=== PATIENT | female | born 1970 | race Caucasian/White ===

== ENCOUNTER → 2016-08-08 | Outpatient (REF) | payer OTHER, BC | LOC: M SFHCLERA 11:25 | PROVIDERS: ATTEND Family Medicine | DX: D23.72 Other benign neoplasm of skin of left lower limb, including hip (principal) ==

== ENCOUNTER → 2016-08-22 | Outpatient (REF) | payer BC | LOC: M SFHCWAGY 08:58 | PROVIDERS: ATTEND Nurse Practitioner Family | DX: Z01.419 Encounter for gynecological examination (general) (routine) without abnormal findings (principal) ==

== ENCOUNTER → 2016-11-01 | Outpatient (REF) | payer BC | LOC: M SFHCLERA 07:40 | PROVIDERS: ATTEND Family Medicine | DX: Z13.1 Encounter for screening for diabetes mellitus (principal); Z13.220 Encounter for screening for lipoid disorders ==

== ENCOUNTER → 2016-12-15 | Outpatient (CLI) | payer BC ==
--- NOTE | 2016-12-15 14:01 | REPMRS ---
Patient History The patient states she had a clinical breast exam in August 2016. Family history of prostate cancer in father at age 72. Digital Mammo Screening Bilat: December 15, 2016 - Exam #: [id number] Bilateral CC and MLO view(s) were taken. Technologist: Marge Jacobs Technologist Prior study comparison: September 04, 2013, digital bilateral screening mammo performed at [facility]. FINDINGS: There are scattered fibroglandular densities. The visualized implant margins are smooth. Breast parenchymal density pattern is essentially symmetric. No dominant mass, clustered microcalcification, or archetectural distortion is evident on either side. No significant changes when compared with prior studies. ASSESSMENT: BI-RADS/ACR category 2 mammogram. Benign finding(s). Recommendation Routine screening mammogram of both breasts in 1 year (for women over age 40). Electronically Signed By: Ryan Barba MD 12/15/16 1400
== END ==
LOC: M RAD 13:23
PROVIDERS: ATTEND Nurse Practitioner Family
DX: Z12.31 Encounter for screening mammogram for malignant neoplasm of breast (principal)

== ENCOUNTER → 2018-06-17 | Outpatient (REF) | payer BC | LOC: M LAB REF 13:48 | PROVIDERS: ATTEND Family Medicine | DX: D23.61 Other benign neoplasm of skin of right upper limb, including shoulder (principal) ==

== ENCOUNTER 2018-12-02 07:40 | Day surgery (SDC) | payer BC ==
[~2018-12-02] VITALS: Ht 165.1 cm; Wt 79.8 kg
[~2018-12-02 07:40] MED LIST: CLAR5TAB11 PO; LIDOCAINE 2% INJ 100 MG/5 ML SDV (FOR ANES.) As Ordered ONE; propofoL 200 MG/20 ML VIAL As Ordered ONE
[2018-12-02] MEDS ORDERED: NS 1,000 ML IV ONE (08:00)
[2018-12-02] MEDS ORDERED: LIDOCAINE 2% INJ 100 MG/5 ML SDV (FOR ANES.) As Ordered ONE (08:32)
[2018-12-02] MEDS ORDERED: propofoL 200 MG/20 ML VIAL As Ordered ONE (08:32)
--- NOTE | 2018-12-02 08:47 | ROOR ---
Patient Name: Patt Walton Procedure Date: 12/02/2018 8:25 AM Date of : 1970 Age: 48 Room: [facility] Gender: Female Note Status: Finalized Procedure: Colonoscopy Indications: Screening for colorectal malignant neoplasm Providers: Lior JOHNSON MD Referring MD: Marychuy Grey MD Requesting Provider: Medicines: Monitored Anesthesia Care Complications: No immediate complications. Procedure: Pre-Anesthesia Assessment: - The heart rate, respiratory rate, oxygen saturations, blood pressure, adequacy of pulmonary ventilation, and response to care were monitored throughout the procedure. The Colonoscope was introduced through the anus and advanced to the cecum, identified by appendiceal orifice and ileocecal valve. The colonoscopy was performed without difficulty. The patient tolerated the procedure well. The quality of the bowel preparation was good. Findings: Skin tags were found on perianal exam. A 4 mm polyp was found in the sigmoid colon. The polyp was sessile. The polyp was removed with a cold snare. Resection and retrieval were complete. Small Internal Hemorrhoids. The exam was otherwise without abnormality on direct and retroflexion views. Impression: - Perianal skin tags found on perianal exam. - One 4 mm polyp in the sigmoid colon, removed with a cold snare. Resected and retrieved. - Small Internal Hemorrhoids. - The examination was otherwise normal on direct and retroflexion views. Recommendation: - Repeat colonoscopy in 5 years for surveillance. Lior Johnson MD Lior JOHNSON MD 12/02/2018 8:47:28 AM Electronically signed by Lior JOHNSON MD Number of Addenda: 0 Note Initiated On: 12/02/2018 8:25 AM Estimated Blood Loss: Estimated blood loss: none.
[2018-12-02 09:12] VITALS: BP 130/9
== END 2018-12-02 09:18 | disposition home or self-care (01) ==
LOC: M OPP 07:40
PROVIDERS: ATTEND Internal Medicine Gastroenterology
DX: Z12.11 Encounter for screening for malignant neoplasm of colon (principal); K64.4 Residual hemorrhoidal skin tags; K64.8 Other hemorrhoids; D12.5 Benign neoplasm of sigmoid colon

== ENCOUNTER → 2019-02-10 | Outpatient (CLI) | payer BC ==
[~2019-02-10] MED LIST changes: -LIDOCAINE 2% INJ 100 MG/5 ML SDV (FOR ANES.) As Ordered ONE; -propofoL 200 MG/20 ML VIAL As Ordered ONE
--- NOTE | 2019-02-10 13:33 | REPMRS ---
Patient History The patient states she has not had a clinical breast exam in over a year. Family history of prostate cancer at age 72 in father. Retro-pectoral saline implants in both breasts, 2005. Digital Mammo Screening Bilat: February 10, 2019 - Exam #: [id number] Bilateral CC and MLO view(s) were taken. Technologist: Marge Jacobs, Technologist Prior study comparison: December 15, 2016, bilateral digital mammo screening bilat performed at [facility]. September 04, 2013, digital bilateral screening mammo performed at [facility]. FINDINGS: There are scattered fibroglandular densities. The visualized implant margins are smooth. Breast parenchymal density pattern is essentially symmetric. No dominant mass, grouped microcalcification, or architectural distortion is evident on either side. 3-D tomosynthesis shows no additional findings. No significant changes when compared with prior studies. Assessment: BI-RADS/ACR category 2 mammogram. Benign Findings. Recommendation Routine screening mammogram of both breasts in 1 year (for women over age 40). This patient's Lifetime Breast Cancer Risk is estimated at 11.2 %. This mammogram was interpreted with the aid of an FDA-approved computer-aided dectection system. Electronically Signed By: Ryan Barba MD 02/10/19 [id number]
== END ==
LOC: M RAD 12:44
PROVIDERS: ATTEND Family Medicine
DX: Z12.31 Encounter for screening mammogram for malignant neoplasm of breast (principal)

== ENCOUNTER → 2020-03-03 | Outpatient (CLI) | payer BC ==
--- NOTE | 2020-03-03 08:38 | REPPI ---
INDICATION: RIGHT KNEE PAIN COMPARISON: None. TECHNIQUE: AP, lateral, bilateral oblique and sunrise views. FINDINGS: The osseous structures and joint spaces are intact and normal. There is no evidence for acute fracture or dislocation. No joint effusion is appreciated. Subtle fraying and irregularity along the anterior superior margin of the patella may represent mild tendinopathy. Incidental small fabella noted. Surrounding soft tissues are unremarkable. No subcutaneous emphysema or radiodense foreign body. IMPRESSION: Mild patellar tendinopathy cannot be excluded. Otherwise unremarkable examination. <Electronically signed by Matt Montes > 03/03/20 [id number]
== END ==
LOC: M PLAIMG 08:08
PROVIDERS: ATTEND Nurse Practitioner Family
DX: M25.561 Pain in right knee (principal)